=== PATIENT | female | born 1960 | race Caucasian/White ===

== ENCOUNTER 2020-04-24 08:43 | Outpatient (CLI) | payer MEDICAID, SELFPAY ==
--- NOTE | 2020-04-24 | USCV_ITS ---
Betty Stone Age: 59 Gender: F : 1960 Exam Date: 04/24/2020 09:26 Ordering Phys: Lilian Carver Technologist: Patrick Blanchard Exam Location: [facility] [place] Indication: TOBACCO DEPENDENCE/ ESS HTN RIGHT LEFT Brachial 184.00 mmHg Brachial 168.00 mmHg Pressure (mmHg) Waveform Pressure (mmHg) Waveform 97.00 Above Knee 101.00 114.00 Below Knee 95.00 100.00 DOCUMENT CLERK 96.00 98.00 DPA 83.00 0.54 Ankle/Brachial Index 0.52 FINDINGS UNABLE TO OBTAIN TOE PRESSURES Resting VIRI of 0.54 on the right side and 0.52 on the left side The PVR waveforms were found to be electively of low amplitude, delayed peaking with a loss of dicrotic notch CONCLUSIONS Features of moderate to severe peripheral artery disease bilaterally with an VIRI of 0.54 on the right and 0.52 on the left. The TBI could not be obtained Revised copy of the study results from 05/11/1990 Dr Rosetta Blanton MD [facility] Edited by: [employer] (Electronically Signed) Final Date: 24 April 2020 20:07 Amended: 25 April 2020 08:25 C
--- NOTE | 2020-04-24 08:51 | MM_ITS ---
WS: [id number] BILATERAL SCREENING DIGITAL MAMMOGRAM WITH CAD HISTORY: SCREENING COMPARISON: None available. Bilateral CC and MLO views submitted. Computer aided detection analyzed. Breast composition: There are scattered areas of fibroglandular density. No suspicious masses, microc alcifications or architectural distortion. Benign coarse calcifications in each breast. MM/[id number] IMPRESSION: BI-RADS: 2-Benign FOLLOW UP: 1 Year Follow-up
== END 2020-04-24 08:44 | disposition home or self-care (01) ==
PROVIDERS: PCP Registered Nurse; Visit Provider Registered Nurse
DX: Z12.31 Encounter for screening mammogram for malignant neoplasm of breast (principal); F17.210 Nicotine dependence, cigarettes, uncomplicated; I10 Essential (primary) hypertension
CPT/HCPCS: 77067; 93923